=== PATIENT | male | born 1995 | race Caucasian/White ===

== ENCOUNTER 2016-08-13 07:58 | Emergency (ER) | payer OTHER ==
--- NOTE | 2016-08-13 07:59 | EDPHY ---
H & P HPI/ROS: CHIEF COMPLAINT: Multiple seizures. HISTORY OF PRESENT ILLNESS: The patient is a 20-year-old male with a history of prior seizures who presents via EMS for multiple [id number] tonic-clonic seizures witnessed by friends this morning. Per EMS he has been post-ictal and combative and IV Versed was administered. He denies any complaints at this time. He is oriented to self and current location. He has a history of ADHD but has not taken his Adderall in 3 days. He has been seen by a neurologist and seizure specialist in the past but not started on seizure medications. He states that his seizures occur in the mornings, when he is under stress. He has been told that they are due to adrenal insufficiency and he takes cortisol supplementation, but has not taken it this week. He admits recent cough. He denies recreational drug use. He denies shortness of breath, headache, vomiting , nausea, diarrhea, or other complaints. REVIEW OF SYSTEMS: A 10 point review of systems was performed and is negative with the exception of the elements mentioned in the history of present illness. Source: Patient, EMS, Other (Girlfriend) - Medical/Surgical History PMH: 1. ADHD. 2. Seizures. - Social History Drug Use: Marijuana Additional Social History: 1. [employer] Student. 2. Social alcohol use. 3. Social marijuana use. 4. From [place]. - Physical Exam Exam: General Appearance: Alert, no acute distress. BP 131/80. Head: Normocephalic atraumatic. Eyes: Pupils equal and round, no conjunctival injection, no discharge. ENT, Mouth: Mucous membranes are moist, no oropharyngeal erythema or edema. No tongue trauma. Neck: No lymphadenopathy, supple. Respiratory: Lungs are clear to auscultation; no wheezes, rales, or rhonchi. Cardiovascular: Regular rate and rhythm; no murmur, rub, or gallop. Gastrointestinal: Abdomen is soft and nontender, no masses or organomegaly, bowel sounds normal. Skin: Warm and dry, no rashes, normal color. Back: Nontender to palpation over the thoracolumbar spine. Extremities: No lower extremity edema, no calf tenderness or swelling. Neurological: Alert and oriented. Moving all four extremities easily and equally. Cranial nerves II through XII are examined and are intact (visual acuity not tested). Strength is 5 over 5 bilaterally with testing of all major motor groups. Sensation is intact to light touch over all 4 extremities. Deep tendon reflexes are 2+ in the biceps and knees bilaterally. Psychiatric: Normal affect. Constitutional: Initial Vital Signs Temperature (C) 36.6 C 08/13/16 07:58 Heart Rate 92 08/13/16 07:58 Respiratory Rate 14 08/13/16 07:58 Blood Pressure 131/80 H 08/13/16 07:58 O2 Sat (%) 93 08/13/16 07:58 O2 Delivery Mode Room Air Allergies/Adverse Reactions: No Known Allergies Allergy (Unverified 03/17/16 09:12) Home Medications: Medication Instructions Recorded Dextroamphetamine/Amphetamine 30 mg PO BID 03/17/16 [Adderall 30 mg Tablet] LEVETIRACETAM [Keppra 750 mg] 750 mg PO BID #60 tab 08/13/16 levETIRAcetam [Keppra 500 mg (*)] 500 mg PO BID #60 tab 08/13/16 Medical Decision Making ED Course/Re-evaluation: I met EMS on arrival and obtained a report from the warehouse lead. 20-year-old male with a history of prior seizures presents after reportedly having two back-to- back tonic-clonic seizures at his dorm this morning. Per EMS he has been combative and post-ictal and they had to give her Versed. However, on my exam he does not seem post-ictal and is alert & oriented. On exam he has no trauma related to his seizure. An IV was established. We will check basic blood work including electrolytes. The patient was here last March after a seizure. I reviewed the patient's medical note from that visit. He reports that he followed up with neurology and a seizure specialist after that time. Per the patient's nurse he reports that he has not been compliant with his seizure medications (cortisol supplementation). I reviewed the patient's laboratory studies. Blood work is unremarkable. 0850: Reassessed patient. Discussed with him the results of his workup. I also spoke with his girlfriend who provided some additional history. There was apparently a fall down some steps a week or 2 ago. He states that this was a mechanical fall. He reports being under a great deal of stress with the end of the school year, impending exams, and fraternity pledging. He takes Adderall for attention deficit hyperactivity disorder, but has not taken any for the last day or 2. His girlfriend reports that she was with him during the seizures. She reports tonic-clonic activity, foaming at the mouth, unresponsiveness. He was confused afterwards. She does not think that he injured himself. He is somewhat vague about his previous evaluations. He states that he was seen by a neurologist in [place] in underwent a full evaluation including brain scans and EEG testing. He continues to state that cortisol is his anti seizure medication. I recommended that he start oral Keppra, twice daily. He refused to take any Keppra in the emergency department. He refused to undergo CT scanning. He tells me that he will not fill the prescription, but I did write 1 for him. I am recommending neurologic follow-up. I gave him strict instructions that he should not drive, drink alcohol, or take illicit drugs. Differential Diagnosis: Seizure including but not limited to electrolyte abnormality, alcohol withdrawal , medication noncompliance, head injury, and breakthrough seizure. - Data Points Laboratory Results: Laboratory Results 08/13/16 08:00 08/13/16 08:00 08/13/16 08/13/16 08/13/16 08:45 08:00 08:00 WBC 10.07 10^3/uL H 10^3/uL (3.80-9.50) RBC 5.05 10^6/uL 10^6/uL (4.40-6.38) Hgb 15.8 g/dL g/dL (13.7-17.5) Hct 46.2 % % (40.0-51.0) MCV 91.5 fL fL (81.5-99.8) MCH 31.3 pg pg (27.9-34.1) MCHC 34.2 g/dL g/dL (32.4-36.7) RDW 12.7 % % (11.5-15.2) Plt Count 295 10^3/uL 10^3/uL (150-400) MPV 9.1 fL fL (8.7-11.7) Neut % (Auto) 45.2 % % (39.3-74.2) Lymph % (Auto) 39.4 % % (15.0-45.0) Thurston % (Auto) 9.6 % % (4.5-13.0) Eos % (Auto) 5.1 % % (0.6-7.6) Baso % (Auto) 0.3 % % (0.3-1.7) Nucleat RBC Rel Count 0.0 % % (0.0-0.2) Absolute Neuts (auto) 4.55 10^3/uL 10^3/uL (1.70-6.50) Absolute Lymphs (auto) 3.97 10^3/uL H 10^3/uL (1.00-3.00) Absolute Monos (auto) 0.97 10^3/uL H 10^3/uL (0.30-0.80) Absolute Eos (auto) 0.51 10^3/uL H 10^3/uL (0.03-0.40) Absolute Basos (auto) 0.03 10^3/uL 10^3/uL (0.02-0.10) Absolute Nucleated RBC 0.00 10^3/uL 10^3/uL (0-0.01) Immature Gran % 0.4 % % (0.0-1.1) Immature Gran # 0.04 10^3/uL 10^3/uL (0.00-0.10) Sodium 139 mEq/L mEq/L (134-144) Potassium 4.5 mEq/L mEq/L (3.5-5.2) Chloride 103 mEq/L mEq/L (97-110) Carbon Dioxide 19 mEq/l L mEq/l (22-31) Anion Gap 17 mEq/L H mEq/L (8-16) BUN 21 mg/dL mg/dL (7-23) Creatinine 1.2 mg/dL mg/dL (0.7-1.3) Estimated GFR > 60 Glucose 153 mg/dL H mg/dL (70-100) Calcium 9.5 mg/dL mg/dL (8.5-10.4) Urine Opiates Screen NEGATIVE (NEGATIVE) Urine Barbiturates NEGATIVE (NEGATIVE) Ur Phencyclidine Scrn NEGATIVE (NEGATIVE) Ur Amphetamine Screen NEGATIVE (NEGATIVE) U Benzodiazepines Scrn NEGATIVE (NEGATIVE) Urine Cocaine Screen NEGATIVE (NEGATIVE) U Marijuana (THC) Screen NEGATIVE (NEGATIVE) Departure - Departure Disposition: Home, Routine, Self-Care Clinical Impression: Seizures Condition: Good Instructions: Recurrent Seizures in Adults (ED) Additional Instructions: Follow up with your neurologist this week for reevaluation--please let your doctors in [place] know that you had a seizure today. If you need a local neurologist you have been given the telephone number of the on-call provider. Do not drive or engage in other potentially dangerous activities until you have been cleared by a physician. As you know, I recommend that you start an anti seizure medication and take it along with the adrenal medication. You should resume your prescribed medications and take them on a regular basis. If you are prone to seizures, as it seems that you are, it is important that you eat regular nutritious meals, sleep regularly, avoid alcohol and drugs. I am prescribing Keppra. You should take this, 500 mg per dose, twice daily. This is an anti seizure medication. I understand that you might choose not to fill this prescription and take this medication. Return to the emergency department if you have another seizure or for any serious worsening of condition. Referrals: Art De La Vega DO [Doctor of Osteopathy] - As per Instructions [facility] [Clinic] - As per Instructions Prescriptions: levETIRAcetam [Keppra 500 mg (*)] 500 mg PO BID #60 tab Report Scribed for: Kady Nunez Report Scribed by: Ashu Lizama Date of Report: 08/13/16 Time of Report: 07:59 Physician Review and Approval Statement: 08/13/16 16:11 Portions of this note were transcribed by the medical technologist chemistry. I, Dr. Kady Nunez, personally performed the history, physical exam, and medical decision- making; and confirmed the accuracy of the information in the transcribed note.
[2016-08-13 08:19] VITALS: RESP 14; TEMP 97.9
[2016-08-13 08:36] LABS: % IMMATURE GRANULYOCYTES 0.4 % (0.0-1.1); ABSOLUTE IMMATURE GRANULOCYTES 0.04 10^3/uL (0.00-0.10); ADD DIFF? NO; ADD MORPH? NO; ADD SCAN? NO; ATYPICAL LYMPHOCYTE FLAG 20 (0-99); FRAGMENT RBC FLAG 0 (0-99); HEMATOCRIT 46.2 % (40.0-51.0); HEMOGLOBIN 15.8 g/dL (13.7-17.5); LEFT SHIFT FLG 0 (0-99); LIPEMIA HEMOLYSIS FLAG 90 (0-99); MEAN CELL HEMOGLOBIN 31.3 pg (27.9-34.1); MEAN CELL HEMOGLOBIN CONCENTR. 34.2 g/dL (32.4-36.7); MEAN CELL VOLUME 91.5 fL (81.5-99.8); MEAN PLATELET VOLUME 9.1 fL (8.7-11.7); PLATELET CLUMPS FLAG 0 (0-99); PLATELET COUNT 295 10^3/uL (150-400); RED BLOOD CELL COUNT 5.05 10^6/uL (4.40-6.38); RED CELL DISTRIBUTION WIDTH 12.7 % (11.5-15.2)
[2016-08-13 08:41] LABS: ANION GAP 17 mEq/L (8-16); CALCIUM 9.5 mg/dL (8.5-10.4); CARBON DIOXIDE 19 mEq/l (22-31); CHLORIDE 103 mEq/L (97-110); CREATININE 1.2 mg/dL (0.7-1.3); GLOMERULAR FILTRATION RATE > 60; GLUCOSE 153 mg/dL (70-100); POTASSIUM 4.5 mEq/L (3.5-5.2); SODIUM 139 mEq/L (134-144)
[2016-08-13 09:12] VITALS: BP 125/85; PULSE 89; O2SAT 96
== END 2016-08-13 09:18 | disposition home or self-care (01) ==
LOC: EDUNIT#
DX: G40.909 Epilepsy, unspecified, not intractable, without status epilepticus (principal)
CPT/HCPCS: 80305

== ENCOUNTER 2016-08-13 12:11 | Emergency (ER) | payer OTHER ==
--- NOTE | 2016-08-13 12:19 | EDPHY ---
H & P Time Seen by Provider: 08/13/16 12:16 HPI/ROS: CHIEF COMPLAINT: Seizure. HISTORY OF PRESENT ILLNESS: The patient is a 20-year-old male with a history of prior seizures who presents via EMS in a c-collar for a tonic-clonic seizure just prior to arrival. He was seen in the ED earlier this morning after he had two seizures. He was discharged with a prescription for Keppra but did not take any. Per EMS when he got home he seized again and fell to the floor from his bed. He has been post-ictal and lethargic but cooperative for EMS. He denies vomiting, headache, or other complaints. REVIEW OF SYSTEMS: A 10 point review of systems was performed and is negative with the exception of the elements mentioned in the history of present illness. Source: EMS, Other (Girlfriend and parents) - Medical/Surgical History Hx Asthma: No Hx Chronic Respiratory Disease: No Hx Diabetes: No Hx Cardiac Disease: No Hx Renal Disease: No Hx Cirrhosis: No Hx Alcoholism: No Hx HIV/AIDS: No Hx Splenectomy or Spleen Trauma: No Other PMH: ADHD - Social History Smoking Status: Never smoked Additional Social History: [employer] Student. - Physical Exam Exam: General Appearance: Alert, no acute distress. Vitals are normal. Eyes: Pupils equal and round, no conjunctival injection, no discharge. ENT, Mouth: Mucous membranes are moist, no oropharyngeal erythema or edema. no tongue laceration or injury. Neck: No lymphadenopathy, supple. Nontender to palpation over the cervical spine in the midline. No pain with active range of motion. Cervical collar removed by me. Respiratory: Lungs are clear to auscultation; no wheezes, rales, or rhonchi. Cardiovascular: Regular rate and rhythm; no murmur, rub, or gallop. Gastrointestinal: Abdomen is soft and nontender, no masses or organomegaly, bowel sounds normal. Skin: Warm and dry, no rashes, normal color. Back: Nontender to palpation over the thoracolumbar spine. Extremities: No lower extremity edema, no calf tenderness or swelling. Neurological: Alert and oriented. Moving all four extremities easily and equally. MAGGIE. EOMI. Tongue midline. Facial expression symmetric. Facial sensation intact to light touch. Strength 5/5 in major motor groups. Sensation intact to light touch over all 4 extremities. Speech fluent and appropriate. No lethargy. Psychiatric: Normal affect. No agitation. Constitutional: Initial Vital Signs Temperature (C) 37.2 C 08/13/16 12:11 Heart Rate 74 08/13/16 12:11 Respiratory Rate 18 08/13/16 12:11 Blood Pressure 127/73 H 08/13/16 12:11 O2 Sat (%) 94 08/13/16 12:11 O2 Delivery Mode Room Air O2 (L/minute) 2 Allergies/Adverse Reactions: No Known Allergies Allergy (Unverified 03/17/16 09:12) Home Medications: Medication Instructions Recorded Dextroamphetamine/Amphetamine 30 mg PO BID 03/17/16 [Adderall 30 mg Tablet] LEVETIRACETAM [Keppra 750 mg] 750 mg PO BID #60 tab 08/13/16 levETIRAcetam [Keppra 500 mg (*)] 500 mg PO BID #60 tab 08/13/16 Medical Decision Making ED Course/Re-evaluation: This is a 20-year-old male with a prior history of seizures who was seen in the ED a few hours ago this morning for multiple seizures. I ordered blood work that all came back negative. He did not have a head CT at that time (he refused) . He was discharged with a Keppra prescription but did not take any. He seized again upon returning home. He arrives in a c-collar but his exam is normal. He is not having neck pain. There is no evidence of oral trauma. An IV was established. 750mg IV Keppra administered. Head CT ordered. 1230: Consulted with Dr. De La Vega, neurology. Based upon my initial description he recommends admission to [facility] for seizure workup. I subsequently obtained additional history from the patient's parents. Selam has had at least 2 previous seizures and undergone a seizure workup at in [facility]. He has also seen Dr. Dylon Greene in [place]. He was offered Keppra and, in discussion with Dr. Greene, decided that he did not want to take seizure medication. Earlier today told me that he was taking medication for adrenal gland function and that this was supposed to keep him from having seizures. This did not make sense to me at the time and it turns out that this is not actually the case. He was given a cortisol supplement of some kind from a naturaopath but he was also advised by his neurologist to begin Keppra. He chose not to do so. It seems that the diagnosis of seizure activity is not in question. I was able to talk with his girlfriend, Ariane, more about his appearance during the seizure today. She states that his eyes remained open. His arms stiffened above his head, he did not respond or answer when she spoke to him, and he then began with rhythmic tonic-clonic movements. All 3 of his seizures were somewhat similar with each 1 somewhat longer lasting than the 1 before. He was confused afterwards. 1245: Head CT results conveyed to me negative by radiology. 1252: Reassessed patient. Discussed with him the results of CT scan. 1257: I spoke with the patient's mother over the phone. I discussed with them the patient's history of multiple seizures today and the ED course. 1335: I consulted again with Dr. De La Vega, neurology and updated him on the patient's history that I obtained from his girlfriend and parents. He tells me that the patient is safe for discharge is he is willing to be compliant with his seizure medications. 1338: I spoke with the patient's father over the phone. 1434: Reassessed patient. He is feeling better and would like to go back to his dorm. His girlfriend will be with him and is willing to help take care of him. He has agreed to take Keppra and will follow up with Dr. Greene this week for reevaluation. I feel that this is a safe plan. I spoke with patient's mother again on the telephone and updated her on the current plan. She is comfortable with him returning to his dorm. I talked with him about his Adderall. He is taking 30 mg daily, once daily. I have asked him to let [employer] know that he has been started on Keppra and I have asked him to let Dr. Greene know that he is taking Adderall. He does not feel that he can function at school without the Adderall. Differential Diagnosis: Seizure including but not limited to electrolyte abnormality, alcohol withdrawal , medication noncompliance, head injury, and breakthrough seizure. - Data Points Medications Given: Discontinued Medications Levetiracetam 750 mg/ Sodium (Chloride) 107.5 mls @ 420 mls/hr IV EDNOW ONE Stop: 08/13/16 12:37 Last Admin: 08/13/16 12:48 Dose: 107.5 mls Departure - Departure Disposition: Home, Routine, Self-Care Clinical Impression: Seizures Condition: Good Instructions: Recurrent Seizures in Adults (ED) Additional Instructions: Take Keppra as prescribed, 750 mg orally twice daily. You received your first dose here today in your IV. Be sure to maintain a regular eating and sleeping schedule. Try to sleep eight hours each night. Drink plenty of fluids. Avoid alcohol or recreational drugs. You must not drive until cleared to do so by your doctor. Follow up with Dr. Greene, neurology, next week as we discussed. Call his office on Monday to arrange an appointment. Make sure that the office staff knows that you had 3 seizures on Monday and that you have been started on Keppra. When you meet with Dr. jones make sure that he knows that you are taking Adderall. You should take it easy this weekend. Let your doctors at [facility] know that you were in the hospital this weekend with seizure activity. Make sure that they know that you are on Keppra. They should review your Adderall dosage. Return to the emergency department if you experience any serious worsening of condition. Referrals: Dylon Greene DO [Medical Doctor] - As per Instructions Prescriptions: LEVETIRACETAM [Keppra 750 mg] 750 mg PO BID #60 tab Report Scribed for: Kady Nunez Report Scribed by: Ashu Lizama Date of Report: 08/13/16 Time of Report: 12:23 Physician Review and Approval Statement: 08/13/16 14:58 Portions of this note were transcribed by the program medical director. I, Dr. Kady Nunez, personally performed the history, physical exam, and medical decision- making; and confirmed the accuracy of the information in the transcribed note.
[2016-08-13] MEDS ORDERED: levETIRAcetam 750 MG in NS 100 ML IV ONE (12:22)
[2016-08-13 15:25] VITALS: BP 122/63; PULSE 81; RESP 18; TEMP 98.6; O2SAT 98
== END 2016-08-13 15:24 | disposition home or self-care (01) ==
LOC: EDUNIT# → EDBD
DX: R56.9 Unspecified convulsions (principal)
CPT/HCPCS: 96374; J1953